=== PATIENT | female | born 1955 | race Hispanic/Latino ===

== ENCOUNTER 2023-06-12 07:06 | Day surgery (SDC) | payer MEDICARE ==
[~2023-06-12] VITALS: Ht 157.5 cm; Wt 80.3 kg
[2023-06-12] VITALS (11 sets, daily range): BP systolic 123–176; BP diastolic 68–94; PULSE 63–72; RESP 12–20
[~2023-06-12 07:06] MED LIST: CEFU500T67 PO; LACT10SO76 PO; LEVO50CA4 PO; LINA290C PO; LOSA50TA64 PO; TRAM50TA4 PO
[2023-06-12] MEDS: 0.9%NACL 1000ML 1,000 ML IV ONE (07:46)
[2023-06-12] MEDS ORDERED: PROPOFOL 10 MG/ML 20ML VIAL IV ONE (08:39)
== END 2023-06-12 10:20 | disposition home or self-care (01) ==
LOC: ENDO 07:06 → DAH 07:06 → ENDO 10:20
PROVIDERS: ATTEND Internal Medicine Gastroenterology
DX: Z12.11 Encounter for screening for malignant neoplasm of colon (principal); K64.1 Second degree hemorrhoids; K57.30 Diverticulosis of large intestine without perforation or abscess without bleeding; D12.3 Benign neoplasm of transverse colon; K59.04 Chronic idiopathic constipation; K29.70 Gastritis, unspecified, without bleeding; G47.30 Sleep apnea, unspecified; I10 Essential (primary) hypertension; F32.A Depression, unspecified; E78.5 Hyperlipidemia, unspecified; F41.9 Anxiety disorder, unspecified; M19.90 Unspecified osteoarthritis, unspecified site; Z79.899 Other long term (current) drug therapy; Z86.010 Personal history of colon polyps; Z90.710 Acquired absence of both cervix and uterus; Z98.84 Bariatric surgery status; Z98.890 Other specified postprocedural states
CPT/HCPCS: 45385; J7030 ×2; J2704; A4620; A4215; A4223; A4657; A7002; A4222; A4221; A4663; A4606; J3490

== ENCOUNTER 2023-06-20 08:56 | Day surgery (SDC) | payer MEDICARE ==
[~2023-06-20] VITALS: Ht 157.5 cm; Wt 79.4 kg
[2023-06-20] VITALS (10 sets, daily range): BP systolic 132–154; BP diastolic 76–85; PULSE 58–64; RESP 10–16
[~2023-06-20 08:56] MED LIST changes: -CEFU500T67 PO
[2023-06-20] MEDS: 0.9%NACL 1000ML 1,000 ML IV ONE (10:35)
[2023-06-20] MEDS ORDERED: PROPOFOL 10 MG/ML 20ML VIAL IV ONE (11:07)
[2023-06-20] MEDS ORDERED: LIDOCAINE HCL 1% 20 ML VIAL ONE (11:07)
== END 2023-06-20 12:45 ==
LOC: DAH 08:56 → ENDO 08:56
PROVIDERS: ATTEND Internal Medicine Gastroenterology
DX: K92.1 Melena (principal); K31.89 Other diseases of stomach and duodenum; I10 Essential (primary) hypertension; D69.6 Thrombocytopenia, unspecified; K64.1 Second degree hemorrhoids; K57.30 Diverticulosis of large intestine without perforation or abscess without bleeding; K59.04 Chronic idiopathic constipation; K29.70 Gastritis, unspecified, without bleeding; F41.9 Anxiety disorder, unspecified; F32.A Depression, unspecified; E78.5 Hyperlipidemia, unspecified; G40.909 Epilepsy, unspecified, not intractable, without status epilepticus; Z86.010 Personal history of colon polyps; Z98.84 Bariatric surgery status; Z90.710 Acquired absence of both cervix and uterus; Z88.8 Allergy status to other drugs, medicaments and biological substances; Z79.899 Other long term (current) drug therapy
CPT/HCPCS: 43239; J7030; J2704; A4620; A4215 ×2; A4223; A4222; A4221; A4663; A4606; J3490